=== PATIENT | female | born 1955 | race Caucasian/White ===

== ENCOUNTER 2019-10-16 12:46 | Outpatient (CLI) | payer OTHER, SELFPAY ==
--- NOTE | ~2019-10-16 | DEXA_ITS ---
Bone Density Report Name: Lisa Hernandez Age: 64 Sex: Female Ethnicity: White Date of : 1955 Indication: postmenopausal; inflammatory bowel disease; prior fracture; hysterectomy; Referring Provider: Vanessa, Justine Rivera Study: Bone densitometry was performed. Exam Date: October 16, 2019 Accession number: [id number] Bone Density: Region BMD T-score Z-score Classification AP Spine (L1-L4) 1.091 0.4 2.0 Normal Femoral Neck (Left) 0.691 -1.4 0.0 Osteopenia Total Hip (Left) 0.789 -1.3 -0.2 Osteopenia Total Hip Bilateral Avg 0.790 -1.3 -0.2 Osteopenia Femoral Neck (Right) 0.675 -1.6 -0.2 Osteopenia Total Hip (Right) 0.790 -1.2 -0.2 Osteopenia World Health Organization criteria for BMD impression classify patients as: Normal (T-score at or above -1.0), Osteopenia (T-score between -1.0 and -2.5), or Osteoporosis (T-score at or below -2.5). 10-year Fracture Risk(1): Major Osteoporotic Fracture 13% Hip Fracture 1.2% Reported Risk Factors: [place] (), Neck BMD=0.675, BMI=37.6, previous fracture (1) FRAX(R) Version 3.08. Fracture probability calculated for an untreated patient. Fracture probability may be lower if the patient has received treatment. Previous Exams: Region Exam Age BMD T-score BMD Change BMD Change Date g/cm2 vs Baseline vs Previous AP Spine(L1-L4) 10/16/2019 64 1.091 0.4 -0.151(-12.1%) -0.029(-2.6%)* 08/09/2014 58 1.121 0.7 -0.122(-9.8%)# -0.016(-1.4%)# 05/12/2011 55 1.136 0.8 -0.106(-8.6%)# -0.106(-8.6%)# 08/25/2008 53 1.242 1.8 Total Hip(Left) 10/16/2019 64 0.789 -1.3 -0.238(-23.2%) -0.049(-5.9%)* 08/09/2014 58 0.838 -0.9 -0.189(-18.4%) -0.039(-4.5%)# 05/12/2011 55 0.877 -0.5 -0.150(-14.6%) -0.150(-14.6%) 08/25/2008 53 1.028 0.7 Total Hip(Right) 10/16/2019 64 0.790 -1.2 -0.060(-7.0%)# -0.035(-4.3%)* 08/09/2014 58 0.826 -1.0 -0.024(-2.8%)# -0.004(-0.5%)# 05/12/2011 55 0.830 -0.9 -0.020(-2.3%)# -0.020(-2.3%)# 08/25/2008 53 0.850 -0.8 *Denotes significance at 95% confidence level, LSC for AP Spine = 0.022 g/cm2, LSC for Total Hip = 0.027 g/cm2 Clinical Information Provided by Patient: Has had a low trauma fracture Has used the following medications: Vitamin D, Calcium Has the following medical conditions: Inflammatory bowel diseases, Hysterectomy Patient maximum height was 69.7 Menopause Age: 47 Drinks caffeinated beverages Onset of menses at age 17 Number of children 1
== END 2019-10-16 12:47 | disposition home or self-care (01) ==
PROVIDERS: PCP Family Medicine; Visit Provider Nurse Practitioner Obstetrics & Gynecology
DX: Z78.0 Asymptomatic menopausal state (principal); M85.852 Other specified disorders of bone density and structure, left thigh; M85.851 Other specified disorders of bone density and structure, right thigh
CPT/HCPCS: 77080

== ENCOUNTER 2020-04-17 10:15 | Outpatient (CLI) | payer OTHER, SELFPAY ==
--- NOTE | ~2020-04-17 | MM_ITS ---
EXAMINATION: MM screening skye BI w samina HISTORY: Screening mammogram TECHNIQUE: Craniocaudal and mediolateral oblique 3-D tomosynthesis images were obtained and synthetic 2-D images were generated. CAD analysis was submitted and interpreted. COMPARISON: 02/23/2019, 01/22/2018, 12/24/2016 bilateral digital screening mammogram examinations BREAST PARENCHYMAL COMPOSITION: There are scattered areas of fibroglandular density. FINDINGS: There is a biopsy marker in the upper outer quadrant of the left breast; history of prior b enign biopsy. Bilateral breast masses are noted. Bilateral diagnostic mammography an ultrasound examination is johnnie mmended. IMPRESSION: 1. Bilateral breast masses 2. Bilateral diagnostic mammography and bilateral breast ultrasound examination are recommended. BI-RADS Category 0: Incomplete: Needs additional imaging evaluation. Reviewed, dictated and finalized at location A. TE HEALTH COACH
== END 2020-04-17 10:16 | disposition home or self-care (01) ==
LOC: ANHIMG 10:17
PROVIDERS: PCP Family Medicine; Visit Provider Family Medicine
DX: Z12.31 Encounter for screening mammogram for malignant neoplasm of breast (principal); R92.8 Other abnormal and inconclusive findings on diagnostic imaging of breast
CPT/HCPCS: 77063; 77067

== ENCOUNTER 2020-05-14 12:55 | Outpatient (CLI) | payer OTHER, SELFPAY ==
--- NOTE | ~2020-05-14 | MMUS_ITS ---
EXAMINATION: MM diagnostic mammo BI, US breast BI complete HISTORY: Follow-up bilateral breast masses. TECHNIQUE: Additional 3-D tomosynthesis images of the breasts were performed and synthetic 2-D images were generated. CAD analysis was submitted and interpreted. High resolution complete bilateral breas t ultrasound was performed. COMPARISON: Comparison to multiple prior studies sequentially, with oldest reviewed study dated 08/09. BREAST PARENCHYMAL COMPOSITION: Breast composed of scattered areas of fibroglandular density. FINDINGS: MAMMOGRAPHIC FINDINGS: There are small bilateral benign-appearing nodular densities in the periareolar location of both mattie sts. There are no suspicious calcifications or architectural distortion. ULTRASOUND: Bilateral breast Limited ultrasound: The right breast at 11:00, 3 cm from the nipple there is a 3 mm cyst. No suspicious masses are identi fied in the left breast to suggest malignancy. IMPRESSION: 1. Probable benign periareolar breast nodules. 2. Recommend 6 month follow-up diagnostic bilateral mammogram. BI-RADS category 3, probably benign findings. Reviewed, dictated and finalized at location A. RD SYSTEMS ANALYST IMPRESSION: 1. Probable benign periareolar breast nodules. 2. Recommend 6 month follow-up diagnostic bilateral mammogram. BI-RADS category 3, probably benign findings.
== END 2020-05-14 12:56 | disposition home or self-care (01) ==
PROVIDERS: PCP Family Medicine; Visit Provider Physician Assistant
DX: R92.8 Other abnormal and inconclusive findings on diagnostic imaging of breast (principal)
CPT/HCPCS: 76641; 77066

== ENCOUNTER 2020-12-03 12:14 | Outpatient (CLI) | payer OTHER, SELFPAY ==
--- NOTE | ~2020-12-03 | MMUS_ITS ---
EXAMINATION: MM diagnostic skye BI w samina, US breast BI complete HISTORY: Six-month follow-up of probable benign periareolar breast density TECHNIQUE: ML, MLO and craniocaudal 3-D tomosynthesis images of both breasts were performed and synth etic 2-D images were generated. CAD analysis was submitted and interpreted. High resolution bilateral complete breast ultrasound was performed. COMPARISON: 05/14/2020 bilateral diagnostic digital mammogram and bilateral complete breast ultrasound 04/17/2020, 02/23/2019, 01/22/2018 bilateral digital screening mammogram examinations BREAST PARENCHYMAL COMPOSITION: There are scattered areas of fibroglandular density. FINDINGS: MAMMOGRAPHIC FINDINGS: Stable mild fibroglandular asymmetry. No significant interval reproducible mass is noted since 01/22/2018. A biopsy marker is noted in the posterior upper outer left breast; history of prior benign left breast biopsy. No malignant calcification, skin thickening or retraction. ULTRASOUND: Right breast: 11:00 3 cm from nipple: 2.8 x 3.4 mm mildly irregular hypoechoic area, mildly increased in size since 05/14/2020; ultrasound-guided aspiration attempt is recommended; if this does not aspirate, then immed iate ultrasound-guided biopsy is recommended. 10:00 near nipple: 2.4 x 15.8 mm tubular sonolucency, without internal vascularity or posterior shado wing, not significantly changed since 05/14/2020. Left breast: No suspicious mass or shadowing is detected. IMPRESSION: 1. Mildly increased size of a hypoechoic irregular 3.4 mm right breast lesion at 11:00 3 cm from nipp le 2. Ultrasound-guided aspiration attempt of right breast 11:00 lesion is recommended; if this does not successfully completely aspirate, then immediate ultrasound-guided biopsy is recommended BI-RADS category 4, suspicious findings. Dr. Dolan telephoned the report on 12/03/[address] Merlos's Nurse's voicemail. Reviewed, dictated and finalized at location A. IMPRESSION: 1. Mildly increased size of a hypoechoic irregular 3.4 mm right breast lesion a t 11:00 3 cm from nipple 2. Ultrasound-guided aspiration attempt of right breast 11:00 lesion is recomme nded; if this does not successfully completely aspirate, then immediate ultraso und-guided biopsy is recommended BI-RADS category 4, suspicious findings. Dr. Dolan telephoned the report on 12/03/[address] at [address] Merlos's Nurse's voicemail.
== END 2020-12-03 12:15 | disposition home or self-care (01) ==
LOC: ANHIMG 12:16
PROVIDERS: PCP Family Medicine; Visit Provider Family Medicine
DX: R92.8 Other abnormal and inconclusive findings on diagnostic imaging of breast (principal)
CPT/HCPCS: 76641; 77062; 77066; G0279

== ENCOUNTER 2022-01-10 10:59 | Outpatient (CLI) | payer OTHER, SELFPAY ==
--- NOTE | ~2022-01-10 | MM_ITS ---
EXAMINATION: MM screening [facility] BI w samina HISTORY: Screening TECHNIQUE: Craniocaudal and mediolateral oblique 3-D tomosynthesis images were obtained and synthetic 2-D images were generated. CAD analysis was submitted and interpreted. COMPARISON: Comparison to multiple prior studies sequentially, with oldest reviewed study dated 12/11. BREAST PARENCHYMAL COMPOSITION: There are scattered areas of fibroglandular density. FINDINGS: There is no evidence of suspicious mass, calcification, or architectural distortion to sugg est malignancy in either breast. There has been no suspicious interval change. IMPRESSION: 1. No mammographic evidence of malignancy. 2. Recommend routine screening mammography in one year. BI-RADS Category 1: Negative Reviewed, dictated and finalized at location A.
== END 2022-01-10 11:00 | disposition home or self-care (01) ==
PROVIDERS: PCP Family Medicine; Visit Provider Family Medicine
DX: Z12.31 Encounter for screening mammogram for malignant neoplasm of breast (principal)
CPT/HCPCS: 77063; 77067

== ENCOUNTER 2022-03-12 10:39 | Emergency (ER) | payer OTHER, SELFPAY ==
[2022-03-12 11:31] VITALS: BP 134/80; PULSE 75; RESP 16; TEMP 36.8; O2SAT 100
--- NOTE | 2022-03-12 12:19 | ED.EAR ---
HPI - Ear Problem General Chief complaint: Ear Stated complaint: having trouble hearing on lt ear Time Seen by Provider: 03/12/22 12:19 Source: patient Mode of arrival: ambulatory Limitations: no limitations History of Present Illness HPI Narrative: 66-year-old female presented for complaint of decreased hearing from the left ear for about 2 days. She denies associated tinnitus, dizziness, sinus congestion, nausea, vomiting, fevers or chills. She endorses a history of excess cerumen. She has been using Debrox. MD Complaint: ear pain Related Data Home Medications Medication Instructions Recorded Confirmed calcium citrate 200 mg 1 tablet PO DAILY 12/23/19 03/12/22 calcium-vitamin D3 6.25 mcg (250 unit) tablet multivitamin 1 tablet PO DAILY 12/23/19 03/12/22 Allergies Allergy/AdvReac Type Severity Reaction Status Date / Time Inhaled Anesthetics (Halogen Allergy Mild Unknown Verified 03/12/22 12:22 Based) lidocaine [From Anastia] Allergy Mild Unknown Verified 03/12/22 12:22 adhesive Allergy Unknown unknown Verified 03/12/22 12:22 adhesive tape Allergy Unknown Rash Verified 03/12/22 12:22 latex Allergy Unknown unknown Verified 03/12/22 12:22 Review of Systems Review of Systems: CONSTITUTIONAL: Denies malaise, chills, or fever. EYES: Denies visual changes, redness, or discharge. ENT: Denies rhinorrhea, congestion, sinus pain, and sore throat. CARDIOVASCULAR: Denies chest pain, palpitations, or edema. RESPIRATORY: Denies cough or dyspnea. GASTROINTESTINAL: Denies abdominal pain, nausea, vomiting, diarrhea SKIN: Denies rash or itching. MUSCULOSKELETAL: Denies myalgia. NEUROLOGIC: Denies headache. All systems reviewed & are unremarkable except as noted in HPI and below PMFSH Past Medical History Medical History Allergic rhinitis Essential (primary) hypertension Other hyperlipidemia Surgical History Surgical History Carpal tunnel syndrome of right wrist H/O section H/O: hysterectomy History of appendectomy History of carpal tunnel surgery of left wrist Family History Family History Father Patient's father is Family history of emphysema Sibling Patient's brother is Mother Family history of arthritis Social History Social History Smoking status: Never smoker Second hand tobacco smoke exposure: No Alcohol intake: current Alcohol use details: rare Substance use: never Substance use type: does not use Lack of Transportation: No Lack of Food: Never True Current Housing: I Have Housing Concerned About Future Housing: No Difficulty Paying Gas/Electric Bills: No Difficulty Paying for Meds: No Currently Unemployed: No Education: High School Diploma/GED Gender identity (if verbalized by the patient): Female Sexual Orientation (if Verbalized by the Patient): Straight or Heterosexual Spiritual care concerns: No Agree to blood products: Yes Comments At time of signature, agree with nursing past medical, surgical, social and family history. There is no relevant family history pertinent to the presenting complaint Exam Narrative: GENERAL: Well-appearing, well-nourished, and in no acute distress. HEAD: Normocephalic EYES: PERRLA, conjunctivae clear ENT: Nares clear. Mucous membranes moist. TMs pearly taylor with dull light reflex bilaterally, mild clear effusion to left; no tragal tenderness. Oropharynx not erythematous without lesions. NECK: Supple. No lymphadenopathy CHEST: Clear to auscultation, breath sounds equal. No wheezing, rhonchi, rales, or stridor. No respiratory distress, speaks in full sentences. HEART: Regular rate and rhythm. No murmur heard. SKIN: Warm, dry, no rash. NEURO: Alert
== END 2022-03-12 12:32 | disposition home or self-care (01) ==
PROVIDERS: Emergency Provider Nurse Practitioner Family; PCP Family Medicine
DX: H65.02 Acute serous otitis media, left ear (principal); I10 Essential (primary) hypertension; E78.49 Other hyperlipidemia
CPT/HCPCS: 99213; G0463

== ENCOUNTER 2023-01-15 17:26 | Emergency (ER) | payer OTHER, SELFPAY ==
[2023-01-15 17:45] VITALS: BP 155/91; PULSE 76; RESP 16; TEMP 36.4; O2SAT 100
--- NOTE | 2023-01-15 18:18 | ED.EXTPRO ---
HPI - Extremity Problem General Chief complaint: Extremity Problem,Nontraumatic Stated complaint: L INDEX FINGER PAIN/BRUISING Source: patient and RN notes reviewed History of Present Illness HPI Narrative: 67 yo F presents to urgent care with complaints of purple discoloration to left index finger. Pt states she was doing yardwork and planting mums today and when she went inside to wash her hands, she noticed her finger was discolored. Pt is concerned she may have been bitten by a spider. Pt states she remembers feeling a slight pain in the area earlier in the day but nothing significant. Pt admits to wearing gardening gloves intermittently. Pt reports a slight tenderness in the area of the bruise. Denies any other symptoms. Related Data Home Medications Medication Instructions Recorded Confirmed calcium citrate 200 mg 1 tablet PO DAILY 12/23/19 01/15/23 calcium-vitamin D3 6.25 mcg (250 unit) tablet multivitamin 1 tablet PO DAILY 12/23/19 01/15/23 meloxicam 15 mg tablet 15 mg PO DAILY 01/15/23 01/15/23 Allergies Allergy/AdvReac Type Severity Reaction Status Date / Time Inhaled Anesthetics (Halogen Allergy Mild Unknown Verified 01/15/23 17:44 Based) lidocaine [From Anastia] Allergy Mild Unknown Verified 01/15/23 17:44 adhesive Allergy Unknown unknown Verified 01/15/23 17:44 adhesive tape Allergy Unknown Rash Verified 01/15/23 17:44 latex Allergy Unknown unknown Verified 01/15/23 17:44 Review of Systems Review of Systems: CONSTITUTIONAL: Denies fever, chills, or sweats. EYES: Denies visual changes, redness, or discharge. ENT: Denies otalgia and sore throat CARDIOVASCULAR: Denies chest pain, palpitations, or edema. RESPIRATORY: Denies cough or dyspnea. GASTROINTESTINAL: Denies abdominal pain, nausea, vomiting, or diarrhea. GENITOURINARY: Denies dysuria or hematuria. SKIN: dark purple to left index finger MUSCULOSKELETAL: Denies back pain, joint pain, or myalgia. NEUROLOGIC: Denies headache, numbness, or weakness. Pertinent positives per HPI. [facility] Past Medical History Medical History Allergic rhinitis Essential (primary) hypertension Other hyperlipidemia Surgical History Surgical History Carpal tunnel syndrome of right wrist H/O section H/O: hysterectomy History of appendectomy History of carpal tunnel surgery of left wrist Family History Family History Father Patient's father is Family history of emphysema Sibling Patient's brother is Mother Family history of arthritis Social History Social History Smoking status: Never smoker Second hand tobacco smoke exposure: No Alcohol intake: current Alcohol use details: rare Substance use: never Substance use type: does not use Lack of Transportation: No Lack of Food: Never True Current Housing: I Have Housing Concerned About Future Housing: No Difficulty Paying Gas/Electric Bills: No Difficulty Paying for Meds: No Currently Unemployed: No Education: High School Diploma/GED Living arrangements: with family Occupation/Education: retired Gender identity (if verbalized by the patient): Female Sexual Orientation (if Verbalized by the Patient): Straight or Heterosexual Spiritual care concerns: No Agree to blood products: Yes Comments At the time of my signature, I reviewed and agree with the nursing past medical, surgical, social, and family history. There is no relevant family history pertinent to the patient complaint. Exam Narrative: GENERAL: This is a well-nourished, well-developed patient, in no apparent distress. HEAD: normocephalic, atraumatic. EYES: Sclera clear/white. Vision is grossly intact. EARS: External ears n
== END 2023-01-15 18:22 | disposition home or self-care (01) ==
PROVIDERS: Emergency Provider Nurse Practitioner Family; PCP Family Medicine
DX: R58 Hemorrhage, not elsewhere classified (principal); I10 Essential (primary) hypertension; E78.49 Other hyperlipidemia
CPT/HCPCS: 99211; G0463

== ENCOUNTER 2023-05-24 14:44 | Outpatient (CLI) | payer OTHER, SELFPAY ==
--- NOTE | ~2023-05-24 | MM_ITS ---
EXAMINATION: MM screening skye BI w samina HISTORY: Screening mammogram TECHNIQUE: Craniocaudal and mediolateral oblique 3-D tomosynthesis images were obtained and synthetic 2-D images were generated. CAD analysis was submitted and interpreted. COMPARISON: 01/10/2022 bilateral screening mammogram 12/03/2020 bilateral diagnostic mammography and bilateral complete breast ultrasound examination 3. bilateral diagnostic mammography and bilateral complete breast ultrasound examination bilateral screening mammogram BREAST PARENCHYMAL COMPOSITION: There are scattered areas of fibroglandular density. FINDINGS: Biopsy marker is present in the upper outer quadrant of the left breast. History of prior l eft benign left biopsy in 2007 and benign aspiration of right breast in 2020. There is no evidence of suspicious mass, calcification, or architectural distortion to suggest malignancy in either breast. There has been no suspicious interval change. IMPRESSION: 1. No mammographic evidence of malignancy. 2. Recommend routine screening mammography in one year. BI-RADS Category 1: Negative Reviewed, dictated and finalized at location A.
--- NOTE | ~2023-05-24 | DEXA_ITS ---
Bone Density Report Name: JOVANNA VYAS Age: 67 Sex: Female Ethnicity: White Date of : 1955 Indication: postmenopausal; screening for osteoporosis; hysterectomy; Referring Provider: ERMA LOPEZ Study: Bone densitometry was performed. Exam Date: May 24, 2023 Accession number: [id number] Bone Density: Region BMD T-score Z-score Classification AP Spine(L1-L4) 1.072 0.2 2.0 Normal Femoral Neck (Left) 0.673 -1.6 0.0 Osteopenia Total Hip (Left) 0.835 -0.9 0.4 Normal Femoral Neck (Right) 0.681 -1.5 0.0 Osteopenia Total Hip (Right) 0.788 -1.3 0.0 Osteopenia Total Hip Mean 0.812 -1.1 0.2 Osteopenia World Health Organization criteria for BMD impression classify patients as: Normal (T-score at or above -1.0), Osteopenia (T-score between -1.0 and -2.5), or Osteoporosis (T-score at or below -2.5). 10-year Fracture Risk(1): Major Osteoporotic Fracture 8.2% Hip Fracture 0.8% Reported Risk Factors: [place] (), Neck BMD=0.673, BMI=38.1 (1) FRAX(R) Version 3.08. Fracture probability calculated for an untreated patient. Fracture probability may be lower if the patient has received treatment. Clinical Information Provided by Patient: Has used the following medications: Vitamin D, Calcium Has the following medical conditions: Hysterectomy Patient maximum height was 69.7 Menopause Age: 47 No regular weight bearing exercise Drinks caffeinated beverages Onset of menses at age 17 Number of children 1 Impression: The patient has low bone mass, based on the Left Femoral Neck T-score. The patient has an estimated ten-year risk of hip fracture of 0.8% and an estimated ten-year risk of major fracture of 8.2%, based on the WHO FRAX algorithm. Discussion: BONE DENSITY IS LOW AT ONE OR MORE SKELETAL SITES. This patient's lowest T-score is low at one or more skeletal sites. It meets the World Health Organization's (WHO) criteria for ?low bone mass? (T-score between -1.0 and -2.5). The patient's 10-year risk of fracture as calculated by FRAX is less than the threshold where pharmacological therapy is recommended by the National Osteoporosis Foundation (NOF). However, all treatment decisions require clinical judgment and consideration of individual patient factors, including patient preferences, comorbidities, previous drug use, risk factors not captured in the FRAX model (e.g., frailty, falls, vitamin D deficiency, increased bone turnover, interval significant decline in bone density) and possible under or overestimation of fracture risk by FRAX. The patient should follow a healthful lifestyle (good nutrition with adequate calcium and vitamin D, and appropriate weight-bearing exercise). Follow-Up: Consider repeating this study in 2 to 3 years to reassess this patient's status, or soone
== END 2023-05-24 14:45 | disposition home or self-care (01) ==
LOC: ANHIMG 14:45
PROVIDERS: PCP Family Medicine; Visit Provider Family Medicine
DX: Z12.31 Encounter for screening mammogram for malignant neoplasm of breast (principal); Z78.0 Asymptomatic menopausal state; M85.852 Other specified disorders of bone density and structure, left thigh; M85.851 Other specified disorders of bone density and structure, right thigh
CPT/HCPCS: 77063; 77067; 77080

== ENCOUNTER 2023-06-29 12:24 | Emergency (ER) | payer OTHER, SELFPAY ==
--- NOTE | 2023-06-29 12:33 | ED.EAR ---
HPI - Ear Problem General Chief complaint: Ear Stated complaint: Ear Pain Source: patient, RN notes reviewed and old records reviewed Mode of arrival: ambulatory Limitations: no limitations History of Present Illness HPI Narrative: 8-year-old female presents to [facility] with complaints pain and decreased hearing in right ear that started for 5 days ago. Patient tried the Debrox and [id number] swimmers ear medication with no relief. Related Data Home Medications Medication Instructions Recorded Confirmed calcium citrate 200 mg 1 tablet PO DAILY 12/23/19 06/29/23 calcium-vitamin D3 6.25 mcg (250 unit) tablet multivitamin 1 tablet PO DAILY 12/23/19 06/29/23 diclofenac sodium 75 mg 75 mg PO BID PRN knee pain 06/29/23 06/29/23 tablet,delayed release Allergies Allergy/AdvReac Type Severity Reaction Status Date / Time Inhaled Anesthetics (Halogen Allergy Mild Unknown Verified 06/29/23 12:33 Based) lidocaine [From Anastia] Allergy Mild Unknown Verified 06/29/23 12:33 adhesive Allergy Unknown unknown Verified 06/29/23 12:33 adhesive tape Allergy Unknown Rash Verified 06/29/23 12:33 latex Allergy Unknown unknown Verified 06/29/23 12:33 Review of Systems Constitutional: Constitutional: Reports no additional constitutional complaints, Denies body ache(s), Denies chills, Denies fatigue, Denies fever(s) and Denies headache(s) Eyes: Eyes: Reports no additional eye complaints and Denies blurry vision ENT: Reports system reviewed and no additional complaints, except as documented, Denies vertigo, Denies dizziness, Denies ear discharge, Reports otalgia, Denies facial pain, Denies headache(s), Denies nasal congestion, Denies nasal discharge, Denies sinus pain, Denies sinus pressure and Denies sore throat Cardiovascular: Cardiovascular: Reports no additional cardiovascular complaints, Denies chest pain, Denies chest pain at rest, Denies rapid heart rate and Denies dyspnea Respiratory: Respiratory: Reports no additional respiratory complaints, Denies chest congestion, Denies cough, Denies pain on inspiration, Denies pain with cough and Denies dyspnea Gastrointestinal: Gastrointestinal: Denies abdominal pain, Denies diarrhea, Denies nausea and Denies vomiting Integumentary/Breasts: Skin/Breast: Denies rash Neurologic: Reports system reviewed and no additional complaints, except as documented, Denies vertigo, Denies dizziness and Denies headache(s) Endocrine: Endocrine: Denies fatigue PMFSH Past Medical History Medical History Allergic rhinitis Essential (primary) hypertension Other hyperlipidemia Surgical History Surgical History Carpal tunnel syndrome of right wrist H/O section H/O: hysterectomy History of appendectomy History of carpal tunnel surgery of left wrist Family History Family History Father Patient's father is Family history of emphysema Sibling Patient's brother is Mother Family history of arthritis Social History Social History Smoking status: Never smoker Second hand tobacco smoke exposure: No Alcohol intake: current Alcohol use details: rare Substance use: never Substance use type: does not use Lack of Transportation: No Lack of Food: Never True Current Housing: I Have Housing Concerned About Future Housing: No Difficulty Paying Gas/Electric Bills: No Difficulty Paying for Meds: No Currently Unemployed: No Education: High School Diploma/GED Living arrangements: with family Occupation/Education: retired Gender identity (if verbalized by the patient): Female Sexual Orientation (if Verbalized by the Patient): Straight or Heterosexual Spiritual care concerns: No Agree to blood pr
[2023-06-29 12:37] VITALS: BP 134/77; PULSE 86; RESP 16; TEMP 36.8; O2SAT 99
[2023-06-29 12:38] VITALS: BP 134/77; PULSE 86; RESP 16; TEMP 36.8; O2SAT 99
== END 2023-06-29 12:52 | disposition home or self-care (01) ==
PROVIDERS: Emergency Provider Registered Nurse; PCP Family Medicine
DX: H66.001 Acute suppurative otitis media without spontaneous rupture of ear drum, right ear (principal); H61.21 Impacted cerumen, right ear; I10 Essential (primary) hypertension; E78.49 Other hyperlipidemia
CPT/HCPCS: 69210; 99213; G0463

== ENCOUNTER 2023-08-11 13:26 | Outpatient (CLI) | payer OTHER, SELFPAY ==
--- NOTE | ~2023-08-11 | CT_ITS ---
EXAMINATION: CT sinus wo con DATE: 08/11/2023 13:43 INDICATION: Acute recurrent medullary sinusitis TECHNIQUE: Computed tomography (CT) of the paranasal sinuses was performed without intravenous contra st. The dose-length product (DLP) was 298.61 mGy-cm. Iterative reconstruction was used. COMPARISON: None FINDINGS: Poor pneumatization of the frontal sinuses. Retention cyst/polyps in the bilateral maxillar y sinuses, with mucosal thickening. Mild mucosal thickening in the ethmoid sinuses. The frontal and s phenoid sinuses are clear The bilateral ostiomeatal complexes are patent. Right lens replacement. IMPRESSION: Bilateral inferior maxillary sinus retention cyst/polyps. Mild mucoperiosteal disease in the maxillar y and ethmoid sinuses. Reviewed, dictated and finalized at location K. IMPRESSION: Bilateral inferior maxillary sinus retention cyst/polyps. Mild mucoperiosteal d isease in the maxillary and ethmoid sinuses.
== END 2023-08-11 13:27 | disposition home or self-care (01) ==
PROVIDERS: PCP Family Medicine; Visit Provider Otolaryngology
DX: H69.90 Unspecified Eustachian tube disorder, unspecified ear (principal); H90.6 Mixed conductive and sensorineural hearing loss, bilateral; J01.01 Acute recurrent maxillary sinusitis; J34.1 Cyst and mucocele of nose and nasal sinus
CPT/HCPCS: 70486

== ENCOUNTER 2023-10-27 10:52 | Outpatient (CLI) | payer OTHER, SELFPAY | END 2023-10-27 10:53 | disposition home or self-care (01) | PROVIDERS: PCP Family Medicine; Visit Provider Otolaryngology | DX: H69.90 Unspecified Eustachian tube disorder, unspecified ear (principal); J01.01 Acute recurrent maxillary sinusitis; H90.3 Sensorineural hearing loss, bilateral | CPT/HCPCS: 92557; 92567 ==

== ENCOUNTER 2023-12-02 10:36 | Emergency (ER) | payer OTHER, SELFPAY ==
--- NOTE | 2023-12-02 10:43 | ED.SKABFB ---
HPI - Skin/Abscess/Foreign Bdy General Chief complaint: Skin/Abscess/Foreign Body Stated complaint: poison chika, rash on thighs,stomach,back Time Seen by Provider: 12/02/23 10:59 Source: patient and RN notes reviewed Mode of arrival: ambulatory Limitations: no limitations History of Present Illness HPI narrative: 68-year-old female presents with concern for itchy rash on her legs. Reports the rash started off on the back for legs after she did yd work on Monday. Reports it is very itchy. Reports she has tried topical ointment without relief. MD complaint: rash Related Data Home Medications Medication Instructions Recorded Confirmed calcium citrate 200 mg 1 tablet PO DAILY 12/23/19 12/02/23 calcium-vitamin D3 6.25 mcg (250 unit) tablet multivitamin 1 tablet PO DAILY 12/23/19 12/02/23 meloxicam 15 mg tablet 15 mg PO DAILY 09/19/23 12/02/23 Allergies Allergy/AdvReac Type Severity Reaction Status Date / Time Inhaled Anesthetics (Halogen Allergy Mild Unknown Verified 12/02/23 11:03 Based) lidocaine [From Anastia] Allergy Mild Unknown Verified 12/02/23 11:03 adhesive Allergy Unknown unknown Verified 12/02/23 11:03 adhesive tape Allergy Unknown Rash Verified 12/02/23 11:03 latex Allergy Unknown unknown Verified 12/02/23 11:03 Review of Systems Review of Systems: CONSTITUTIONAL: Denies malaise, chills, sweats, or fever. EYES: Denies redness, or discharge. ENT: Denies rhinorrhea, congestion, swollen lips, swollen tongue CARDIOVASCULAR: Denies chest pain, palpitations, or edema. RESPIRATORY: Denies cough or dyspnea. GASTROINTESTINAL: Denies abdominal pain, nausea, vomiting SKIN: Reports itchy rash on bilateral legs MUSCULOSKELETAL: Denies joint pain or myalgia. NEUROLOGIC: Denies headache. All systems reviewed & are unremarkable except as noted in HPI and below PMFSH Past Medical History Medical History Allergic rhinitis Essential (primary) hypertension Other hyperlipidemia Surgical History Surgical History Carpal tunnel syndrome of right wrist H/O section H/O: hysterectomy History of appendectomy History of carpal tunnel surgery of left wrist Family History Family History Father Patient's father is Family history of emphysema Sibling Patient's brother is Mother Family history of arthritis Social History Social History (Reviewed 09/19/23 @ 13:56 by Rhiannon De La Torre [facility]) Smoking status: Never smoker Second hand tobacco smoke exposure: No Alcohol intake: current Alcohol use details: rare Substance use: never Substance use type: does not use Lack of Transportation: No Lack of Food: Never True Current Housing: I Have Housing Concerned About Future Housing: No Difficulty Paying Gas/Electric Bills: No Difficulty Paying for Meds: No Currently Unemployed: No Education: High School Diploma/GED Living arrangements: with family Occupation/Education: retired Gender identity (if verbalized by the patient): Female Sexual Orientation (if Verbalized by the Patient): Straight or Heterosexual Spiritual care concerns: No Agree to blood products: Yes Comments At time of signature, agree with nursing past medical, surgical, social and family history. There is no relevant family history pertinent to the presenting complaint Exam Narrative: GENERAL: Well-appearing, well-nourished, and in no acute distress. HEAD: Normocephalic, atraumatic. EYES: PERRLA, conjunctivae clear, and EOMI. ENT: Mucous membranes moist. Oropharynx without edema, erythema or lesions. NECK: Supple. No lymphadenopathy CHEST: Clear to auscultation. No respiratory distress. HEART: Regular rate and rhythm. SKIN: Warm, dry. Erythematous papular rash noted on bilateral posterior and anterior
[2023-12-02 11:02] VITALS: BP 128/87; PULSE 76; RESP 16; TEMP 36.4; O2SAT 98
== END 2023-12-02 11:13 | disposition home or self-care (01) ==
PROVIDERS: Emergency Provider Nurse Practitioner; PCP Family Medicine
DX: L25.9 Unspecified contact dermatitis, unspecified cause (principal); I10 Essential (primary) hypertension; E78.49 Other hyperlipidemia
CPT/HCPCS: 99213; G0463

== ENCOUNTER 2024-04-19 14:51 | Outpatient (CLI) | payer OTHER, SELFPAY ==
--- NOTE | ~2024-04-19 | US_ITS ---
EXAM: Focused ultrasound examination of the soft tissues of the right flank HISTORY: R22.2 - Localized swelling, mass and lump, trunk TECHNIQUE: Sonographic evaluation of the soft tissues of the right flank were performed assessing gra yscale appearance and color Doppler flow. COMPARISON: None. FINDINGS: Sonographic evaluation of the soft tissues of the right flank demonstrate a subtle area of increased echogenicity measuring 18 x 12 x 5 mm, consistent with a lipoma. Sonographic evaluation of the remainder of the soft tissues of the right flank demonstrate benign fib rofatty and fibromuscular elements without a cystic or solid lesion of concern. IMPRESSION: 18 mm lipoma within the region of clinical concern, as detailed above. Reviewed, dictated and finalized at location A. IGERATING ENGINEER
--- OUTSIDE RECORDS SUMMARY | 2024-04-19 15:00 | XMS_ITS | Clinical Summary ---
Author Organization [facility] [place] Address [address] [place] [address] Phone Care Team Providers Care Seals Engraver Name Role Phone Rosita Merlos MD Primary Care Provider [phone] Medications hydroCHLOROthiaz kelsie 25 mg tablet Take 25 mg by mouth daily. Active multivit with minerals/lutein (MULTIVITAMIN 50 PLUS ORAL) Take by mouth. Active POTASSIUM-99 ORAL Take by mouth. Active calcium carbonate/vitami n D3 (CALCIUM 500 + D ORAL) Take by mouth. Active DICLOFENAC SODIUM ORAL Take by mouth. Active miSOPROStoL (CYTOTEC) 200 mcg tablet Take 200 mcg by mouth 4 times daily. Active Active Problems Problem Noted Date Diagnosed Date Mass of upper outer quadrant of right breast Abnormality of right breast on screening mammogr am 01/07/2021 Social History Tobacco Use Types Packs/Day Years Used Date Smoking Tobacco: Never Assessed Comments No Sex and Gender Information Value Date Recorded Sex Assigned at Not on file Legal Sex Female 8:39 AM CDT Gender Identity Not on file Sexual Orientation Not on file Last Filed Vital Signs Vital Sign Reading Time Taken Comments Blood Pressure 142/91 01/07/2021 11:37 AM CDT Pulse - - Temperature - - Respiratory Rate - - Oxygen Saturation - - Inhaled Oxygen Concentration - - Weight 115.7 kg (255 lb) 01/07/2021 11:37 AM CDT Height 177.2 cm (5' 9.75 ) 01/07/2021 11:37 AM C DT Body Mass Index 36.85 01/07/2021 11:37 AM CDT Plan of Treatment Health Maintenance Due Date Last Done Comments DTAP/TDAP/TD VACCINES (1 - Tdap) 1976 COLORECTAL SCREENING 2002 Colorectal Cancer Screening 2002 FIT-DNA Q 3 years 2002 FIT/FOBT Q 1 year 2002 Flex Sig/CT Colonography Q 5 years 2002 PNEUMOCOCCAL VACCINE 65+ YEA RS (1 of 1 - PCV) 08/20/2007 ZOSTER VACCINE (1 of 2) 08/20/2007 BREAST CANCER SCREENING 12/03/2021 12/04/19 21, 05/14/2020, 04/17/2020 OSTEOPOROSIS SCREENING 2022 INFLUENZA VACCINE (#1) 2023 RSV VACCINE (60+ or ) (1 - 1-dose 75+ series) 2032 Procedures Procedure Name Priority Date/Time Associated Diagnosis Comments MAMMO 3D MARTIN DIAGNOSTIC GINA AT W OR WO CAD Routine 12/03/2020 from Last 3 Months or Most Recently Relevant to Health Maintenance Results * (ABNORMAL) MAMMO DIAG BILAT 3D MARTIN W OR WO CAD (12/03/2020) Anatomical Region Laterality Modality Breast Bilateral Other us Rosita Merlos MD MAMMO ORDERABLES Edited Result - Final from Last 3 Months or Most Recently Relevant to Health Maintenance Insurance [employer] Care Teams Seals Engraver Relationship Specialty Start Date End Date Rosita Merlos MD [address] [place] [address] PCP - General Family Practice 01/06/21
--- OUTSIDE RECORDS SUMMARY | 2024-04-19 15:00 | XMS_ITS | Data Portability ---
Author Organization [facility] Address [address] [place] [address] Care Team Providers Care Buffing Turner And Counter Name Role Phone ERMA LOPEZ Primary Care Provider Assessment No assessment recorded. Plan of Treatment Reminders Order Date Submit Date Provider Last Modified By Organization Details Last Modified Time Details Appointments None record ed. Lab None record ed. Referral None record ed. Procedures None record ed. Surgeries None record ed. Imaging None record ed. Medication Orders None record ed. Patient TargetsNo targets recorded. Patient InstructionsNo instructions recorded. Reason for Referral None Reported. Procedures Surgical History Date Name Laterality Status Provider Name and Address Organization Details Recorded Time 01/08/20 21 aspiration of breast completed [facility] 07/24/2021 15:26:58 03/19/19 21 Carpal tunnel surgery completed [facility] 07/24/2021 15:26:03 09/29/19 18 Carpal tunnel surgery completed [facility] 07/24/2021 15:25:54 09/30/19 17 operation on mouth completed [facility] 07/24/2021 11:09:51 07/24/19 17 operation on mouth completed [facility] 07/24/2021 11:09:33 09/05/19 15 cataract surgery completed [facility] 07/24/2021 11:10:11 03/13/19 08 Breast Biopsy completed [facility] 07/24/2021 15:26:29 03/13/19 02 Appendectomy completed [facility] 07/24/2021 15:26:38 10/25/19 01 hysterectomy completed [facility] 07/24/2021 11:12:52 06/18/18 96 procedure on foot completed [facility] 07/24/2021 11:14:08 09/14/18 95 section completed [facility] 07/24/2021 11:08:24 10/30/18 92 excision of neuroma of cutaneous nerve completed [facility] 07/24/2021 11:11:09 08/07/18 91 cryosurgery completed [facility] 07/24/2021 15:24:58 09/15/18 90 Hysteroscopy completed [facility] 07/24/2021 11:12:21 03/13/18 90 cone biopsy of cervix completed [facility] 07/24/2021 15:25:28 Imaging Results None recorded. Procedure Notes None recorded. Medical Equipment None Reported. Allergies Allergen ID Allergen Name Allergen Category Reaction Reaction Severity Criticality Documentation Date Start Date Code Code System Note Provider Name and Address Organization Details Recorded Time 48923 latex environme nt,medica tion Not available Not available Not available 02/28/2020 40645 91 RxNorm Comme nt: [facility]at [facility]; Not Available [facility] 0 14:20:50 Medications Name Sig Start Date Stop Date Status Note LastModified by Organization Details LastModified Time azithromy sean 250 mg tablet TAKE 2 TABLETS BY MOUTH FOR 1 DAY THEN TAKE 1 TABLET BY MOUTH DAILY FOR 4 DAYS 07/24 completed Not Available Not Available Not Available triamcino lone acetonide 0.1 % topical cream APPLY ON LEGS TWICE DAILY NEEDED FOR RASH 07/24 completed Not Available Not Available Not Available misoprost ol 200 mcg tablet TAKE 1 TABLET BY MOUTH TWICE DAILY WITH DICLOFEN AC active Not Available Not Available No t Available hydrochlo rothiazid e 12.5 mg capsule take 2 capsule by oral route every day 07/24 completed Prescrib ed Elsewher e: Yes Loca tion: [facility] By: margoth rollins DateTime : 04/20/19 11:45:00 AM Not Available Not Available Not Available hydrochlo rothiazid e 25 mg tablet TAKE 1 TABLET BY MOUTH DAILY active Not Available Not Available No t Available fluticaso ne propionat e 50 mcg/actua tion nasal spray,pepe pension ADMINIST ER 1 SPRAY IN EACH NOSTRIL EVERY 12 HOURS active Not Available Not Available No t Available meloxicam 7.5 mg/5 mL oral suspensio n take 5 millilit er by oral route every day 05/23 completed Prescrib ed Elsewher e: Yes Loca tion: [facility] By: margoth rollins DateTime : 04/20/19 11:45:00 AM Not Available Not Available Not Available mometason e furoate (bulk) 100 % powder 07/24 completed Prescrib ed Elsewher e: Yes Loca tion: [facility] By: margoth rollins DateTime : 05/24/19 02:30:00 PM Not Available Not Available Not Available Vitals Date Recorded Body height Body mass index (BMI) Body weight Provider Name and Address Organization Details Last Updated DateTime 07/24/2021 176.56 cm 37.8 kg/m2 397797.02 g Lois Gamboa [facility] 07/24/2021 10:51:42 Date Recorded Systolic blood pressure Diastolic blood pressure Provider Name and Address Organization Details Last Updated DateTime 07/24/2021 130 mm[Hg] 79 mm[Hg] Justine Mendez, [facility]- [address], [place], [address], [facility] 07/24/2021 11:18:03 Social History Question Answer Notes LastModified by Organizat ion Details LastModified Time Tobacco Smoking Status Never Smoker Lois Gamboa [facility], [facility] 07/24/2021 11:07:55 What Is Your Level Of Alcohol Consumption? Occasional [email or web address] Information not available 07/24/2021 Are You Blind Or Do You Have Difficulty Seeing? No [email or web address] Information n ot available 07/24/2021 What Is Your Level Of Caffeine Consumption? Occasional [email or web address] Information not available 07/24/2021 In The 14 Days Before Symptom Onset, Have You Had Close Contact With A Laboratory-confirm ed COVID-19 While That Case Was Ill? No Information n ot available 07/24/2021 In The 14 Days Before Symptom Onset, Have You Had Close Contact With A Person Who Is Under Investigation For COVID-19 While That Person Was Ill? No [email or web address] Information not available 07/24/2021 Have You Been To An Area Known To Be High Risk For COVID-19? No Information not available 07/24/2021 Are You Deaf Or Do You Have Serious Difficulty Hearing? No [email or web address] Information not available 07/24/2021 What Type Of Diet Are You Following? REGULAR [email or web address] Information n ot available 07/24/2021 Have You Ever Been Counseled For Unhealthy Alcohol Use? No [email or web address] Information not available 07/24/2021 Do You Use Your Seat Belt Or Car Seat Routinely? Yes Information not available 07/24/2021 Do You Have Smoke And Carbon Monoxide Detectors In Your Home? Yes [email or web address] Information not available 07/24/2021 Do You Feel Stressed (tense, Restless, Nervous, Or Anxious, Or Unable To Sleep At Night)? [id number] Information not available 07/24/2021 Do You Use Any Illicit Or Recreational Drugs? No [email or web address] Information not available 07/24/2021 Do You Use Sunscreen Routinely? Yes [email or web address] Information not available 07/24/2021 Has Tobacco Cessation Counseling Been Provided? No [email or web address] Information not available 07/24/2021 Do You Or Have You Ever Used Any Other Forms Of Tobacco Or Nicotine? No [email or web address] Information not available 07/24/2021 Sex: Unknown Functional Status Question Answer Note LastModified by Organizat ion Details LastModified Time Do you have difficulty walking or climbing stairs? No [email or web address] Information not available 07/24/2021 Are you able to walk? YESWOREST [email or web address] Information not available 07/24/2021 Are you able to care for yourself? Yes [email or web address] Information not available 07/24/2021 Do you have difficulty dressing or bathing? No [email or web address] Information not available 07/24/2021 What is your exercise level? Occasional [email or web address] Information not available 07/24/2021 Mental Status None recorded. Family History Relationship Description Onset Age of this Age Resolved Age Notes LastModified by Organization Details LastModified Time Brother Myocardial infarction Not available 07/11 11:06:59 Brother Heart disease [email or web address] Not available 07/24 11:07:06 Paternal Aunt Malignant tumor of breast [email or web address] Not available 07/24 11:07:14 Notes:Brother: Congenital he art disease Paternal aunt: Cancer, breast Medical History Condition Response Allergies (Food, seasonal, environmental ) N Other N Drug/Latex Allergies/Reactions N Breast Cancer N Blood Transfusion N Lung Disease N Dermatologic Disorders N Defects or Inherited Disease N Breast Problem Y Gestational Diabetes N Hematologic disorders N Anesthesia Complications N History of STI N Deep Vein Thrombosis N Polycystic ovary syndrome N Anxiety Disorder N Autoimmune disease N Arthritis N Polyps N Infertility N History of abnormal pap N Acid Reflux (GERD) N Cancer N Varicosities N Stroke N Neurologic/Epilepsy Y Endometriosis N High Cholesterol N Headaches N Fibromyalgia N Kidney Disease N Heart Problems N Thyroid Problems N Kidney or Bladder Problems N GI Problems N Eating Disorder N Anemia N Art (IVF or FET) N Psychiatric Illness N Ovarian Cancer N Diabetes N Pulmonary (TB, Asthma) N Hepatitis/Liver Disease N No Past Medical History N Eczema N Urinary Tract Infection N Abuse/Domestic Violence N Asthma N Trauma/Violence N Depression/ depression N Heart Disease N Pre-Eclampsia N Hypertension Y Osteoporosis N Thrombophilias N Gynecological History Statement/Question Response Date of Last Mammogram Date of LMP 03/13/2000 Date of DEXA bone scan Date of Last Pap Smear Current Control Method Menopause Desired Control Method Hysterectom y LMP Approximate Obstetrics History GPAL:G 1 P 1 0 0 1 Type Value Full Term 1 Living 1 Total 1 Past Encounters Encounter ID Performer Location Encounter Start Date Encounter Closed Date Diagnosis/Indication Diagnosis SNOMED-CT Code Diagnosis ICD10 Code Diagnosis Note [id number] Justine Mendez [facility] [address] [address] 07/24/2021 10:29:45 07/27/2021 16:11:27 Labial cyst [id number] N90.7 Area of concern was examined & it is wnl.Area is scarring from a previous infected follicle that is also near a blood vessel which is what gave it a purple sheen that patient saw when looking in mirror at home.Will monitor & let us know if any changes occur.Unde rstanding verbalized & agreeable to plan of care. Time spent in visit is a total of 15 mins with at least 50% of visit consisting of counseling and review of plan of care. Health Concerns Section Related Observation LastModified by Organization Detai ls LastModified Time None Recorded Concern Status LastModified by Organization Details LastModified Time None Recorded Advance Directives Directive None Recorded Payers Encounter Date Sequence Insurance Name Policy Number Policy Dolan Covered Member ID Dolan Member ID Guarantor Name 07/24/2021 1 [employer] - [employer] [facility] HEALTH PLAN - DOS PRIOR TO 03.13.2023 Lisa Hernandez [id number] Notes Date Note Type Note Provider Name and Address Organization Details Recorded Time 07/24/2021 text/html Here today for concerns of a vaginal bump noted about a week ago.Not causing any issues.Was washing this area and felt something. Neg painNeg drainageNeg shaving/waxingNeg vag d/c, itching, odorNeg SA-declined need std screenNeg Hx of Vag HSV Justine Mendez, [facility] [address], [place], [address], [facility] 07/27/2021 07:58:11 OBGyn Episode Ob Episode Information Episode Created Date Number of Fetuses Patient Bloodtype Patient rh Status Prepregnancy Weight lbs Domestic Partner Domestic Partner Phone Father Name Telegraph Office Telephone Clerk Status 07/25/19 22 1 CLOSED Fetus Data First Name Last Name Admitted to NICU Weight (g) Sex Living Outcome Pediatric Complications Fetus ID Race Codes Race Delivery Type 3968.93 F Full Term [id number] Primary Andrzej Calculation Initial Andrzej Date Initial Exam Date Initial Exam Provider Initial Ultrasound Date Last Menstrual Period Date Ultra Sound Weeks Gestation 0 Eighteen To Twenty Week Andrzej Update Ultra Sound Date Fundal Height At Umbil Quickening Date Ultra Sound Latest Weeks Gestation Final Andrzej Confirmed By Final Andrzej Confirmed Date Final Andrzej Date Ultra Sound Latest Days Gestation 0 0 Menstrual History Last Menstrual Date Menses Monthly On Bcp Conception Prior Menses Frequency Hcg Plus Date Menarche Onset Age Delivery Information Delivery Date Delivery Type Labor Anesthesia Weeks Gestation Incision Type Labor Labor Length Hrs Delivered By Post Complications Tubal Sterilization Discharge Date Comments 5 41 Discharge Information Feeding Method Contraceptive Method Maternal HG B and HCT Levels
--- OUTSIDE RECORDS SUMMARY | 2024-04-19 15:00 | XMS_ITS | Referral Summary ---
Author Organization [facility] Address [address] [place] [address] Care Team Providers Care Wide Area Network Administrator Name Role Phone Rosita Merlos MD Primary Care Provider [phone] Source Comments [facility],non-Formerly [facility], later [facility] and Associated Physician Practices is amultiple site organization consisting of ambulatory clinics and hospital sitesin [place], [place], [place] and [place]. This disclosure is being madepursuant to the Care Everywhere program and may not contain all information available regarding this patient. Last updated 17.[facility] Encounters Date Type Department Care Team Description 04/16/2024 2:20 PM TEACHER SPECIALIST Office Visit [address] [address] Esa Sullivan MD Primary osteoarthritis of right knee (Primary Dx) 03/13/[address] [address] Matty Walter PA-C Refill Request 01/23/2024 2:30 PM TEACHER SPECIALIST Office Visit [address] [address] Esa Sullivan MD Primary osteoarthritis of right knee (Primary Dx) from Last 3 Months Allergies Active Allergy Reactions Criticality Noted Date Comments Latex Other 10/18/2022 Medications * Be aware that medications may not be up to date on this document. Alwaysverify current medications with the patient. Medication Sig Dispensed Refills Start Date End Date Status miSOPROStol (Cytotec) 200 MCG tablet TAKE 1 TABLET BY MOUTH TWICE DAILY WITH DICLOFENAC Active hydroCHLOROthiazide (Hydrodiuril) 25 MG tablet Take 1 (one) tablet by mouth once daily 07/25/2022 Active fluticasone propionate (Flonase) 50 MCG/ACT nasal spray ADMINISTER 1 SPRAY IN EACH NOSTRIL EVERY 12 HOURS Active doxycycline hyclate (Vibramycin) 100 MG capsule Take 1 (one) capsule by mouth 2 times daily 08/29/2022 Active meloxicam (Mobic) 15 MG tablet TAKE 1 TABLET BY MOUTH EVERY DAY 30 tablet 5 03/14/2024 Active Hospital, Clinic, or Other Facility Administered Medication Ordered Dose Route Frequency Start Date End Date Status methylPREDNISolone acetate (DEPO-Medrol) injection 80 mgIndications:Primary osteoarthritis of right knee 80 mg IX ONCE 04/16/2024 04/16/2024 Ended lidocaine PF (Xylocaine MPF) 1 % injection 3 mLIndications:Primary osteoarthritis of right knee 3 mL IX ONCE 04/16/2024 04/16/2024 Ended Active Problems Problem Noted Date Diagnosed Date Primary osteoarthritis of right knee 10/20/2022 Social History Tobacco Use Types Packs/Day Years Used Date Smoking Tobacco: Never Smokeless Tobacco: Never Tobacco Cessation:Counseling Given: Not Answered Alcohol Use Standard Drinks/Week Comments Yes 1 (1 standard drink = 0.6 oz pur e alcohol) PHQ-2 Answer Date Recorded Patient Health Questionnaire-2 Score 0 04/15/2024 Sex and Gender Information Value Date Recorded Sex Assigned at Not on file Gender Identity Not on file Sexual Orientation Not on file Last Filed Vital Signs Vital Sign Reading Time Taken Comments Blood Pressure - - Pulse - - Temperature - - Respiratory Rate - - Oxygen Saturation - - Inhaled Oxygen Concentration - - Weight 113.4 kg (250 lb) 10/18/2022 3:01 PM CDT Height 177.2 cm (5' 9.75 ) 10/18/2022 3:01 PM CD T Body Mass Index 36.13 10/18/2022 3:01 PM CDT Plan of Treatment Upcoming Encounters Date Type Department Care Team (Late st Contact Info) Description 07/16/2024 2:20 PM CDT Office Visit [facility] [address] [phone] [place] [address] [address] Care Teams Wide Area Network Administrator Relationship Specialty Start Date End Date Rosita Merlos MD [address] [facility] [place] [address] PCP - General Family Medicine 10/18/22
--- OUTSIDE RECORDS SUMMARY | 2024-04-19 15:00 | XMS_ITS | Patient Health Summary ---
Author Organization [facility] Address [address] [place] [address] Care Team Providers Care Scrap Drop Engineer Name Role Phone Rosita Merlos MD Primary Care Provider [phone] Note from [facility],non-owned Affiliates and Associated Physician Practices is amultiple site organization consisting of ambulatory clinics and hospital sitesin [place], [place], [place] and [place]. This disclosure is being madepursuant to the Care Everywhere program and may not contain all information available regarding this patient. Last updated 17.[facility] Allergies * Latex(Other) Medications * Be aware that medications may not be up to date on this document. Alwaysverify current medications with the patient. * miSOPROStol (Cytotec) 200 MCG tablet TAKE 1 TABLET BY MOUTH TWICE DAILY WITH DICLOFENAC * hydroCHLOROthiazide (Hydrodiuril) 25 MG tablet(Started 07/25/2022) Take 1 (one) tablet by mouth once daily * fluticasone propionate (Flonase) 50 MCG/ACT nasal spray ADMINISTER 1 SPRAY IN EACH NOSTRIL EVERY 12 HOURS * doxycycline hyclate (Vibramycin) 100 MG capsule(Started 08/29/2022) Take 1 (one) capsule by mouth 2 times daily * meloxicam (Mobic) 15 MG tablet(Started 03/14/2024) TAKE 1 TABLET BY MOUTH EVERY DAY 5 refills by 03/14/2025 Active Problems Problem Noted Date Diagnosed Date [...] Mass Index 36.13 10/18/2022 3:01 PM CDT Procedures * XR KNEE RIGHT 3VW(Performed 10/18/2022) Performed for Right knee pain, unspecified chronicity Results * XR KNEE RIGHT 3VW (10/18/2022 3:08 PM CDT) Anatomical Region Laterality Modality Lower Extremity Computed Radiogr aphy Narrative 10/18/2022 3:08 PM CDT Ana Hampton, RT(R) 10/27/2022 9:14 AM See progress notes for results Esa Sullivan MD DIAGNOSTIC IMAGING O [facility] Care Teams Scrap Drop Engineer Relationship Specialty Start Date End Date Rosita Merlos MD [address] [facility] [place] [address] PCP - General Family Medicine 10/18/22
--- OUTSIDE RECORDS SUMMARY | 2024-04-19 15:00 | XMS_ITS | Clinical Summary ---
Author Organization [facility] Address [address] [place] [address] Care Team Providers Care Platinum And Palladium Kettle Tender Name Role Phone Rosita Merlos MD Primary Care Provider [phone] Source Comments [facility] and Associated Physician Practices is amultiple site organization consisting of ambulatory clinics and hospital sitesin [place], [place], [place] and [place]. This disclosure is being madepursuant to the Care Everywhere program and may not contain all information available regarding this patient. Last updated 17.[facility] Allergies Active Allergy Reactions Criticality Noted Date [...] Date Primary osteoarthritis of right knee 10/20/2022 Encounters Date Type Department Care Team Description 04/16/2024 2:20 PM PAINTER AND BODY MECHANIC APPRENTICE Office Visit [address], [address] [phone] Esa Sullivan MD Primary osteoarthritis of right knee (Primary Dx) 03/13/[address], [address] [phone] Matty Walter PA-C Refill Request 01/23/2024 2:30 PM PAINTER AND BODY MECHANIC APPRENTICE Office Visit [address] [phone] Esa Sullivan MD Primary osteoarthritis of right knee (Primary Dx) from Last 3 Months Social History Tobacco Use Types Packs/Day Years [...] Description 07/16/2024 2:20 PM CDT Office Visit [address], [address] [phone] [place] [address] [address] Health Maintenance Due Date Last Done Comments BONE DENSITY TESTING 1955 COLOGUARD (AGES 45-75) - COL ON CA SCREENING 1957 COLON MONITORING 1957 COLONOSCOPY - COLON CA SCREENING 1957 CT COLONOGRAPHY - COLON CA SCREENING 1957 Colorectal Cancer Screening 1957 FIT - COLON CA SCREENING 1957 FLEX SIG - COLON CA SCREENING 1957 LIPID TESTING 1957 HEPATITIS C SCREENING 08/15/1975 DTAP/TDAP/TD VACCINES (1 - Tdap) 1976 PNEUMOCOCCAL VACCINE 50+ (1 of 1 - PCV) 08/20/2007 ZOSTER VACCINE (1 of 2) 08/20/2007 MAMMOGRAM 12/03/2022 12/03/2020 COVID-19 VACCINE (1 - 2023-2 5 season) 2023 INFLUENZA VACCINE (#1) 2023 Respiratory Syncytial Virus (RSV) Vaccine Pt: or over 60 yrs (1 - 1-dose 75+ series) 2032 DEPRESSION SCREENING Completed 04/16/2024, 01/23/2024 HEPATITIS B VACCINE Aged Out No longe r eligible based on patient's age to complete this topic HIB VACCINE Aged Out No longer eligi ble based on patient's age to complete this topic HPV VACCINE Aged Out No longer eligi ble based on patient's age to complete this topic MENINGOCOCCAL (Group B) VACCINE Aged Out No longer eligible b ased on patient's age to complete this topic MENINGOCOCCAL VACCINE Aged Out No amena kelli eligible based on patient's age to complete this topic Care Teams Platinum And Palladium Kettle Tender Relationship Specialty Start Date End Date Rosita Merlos MD [address] [facility] [place] [address] PCP - General Family Medicine 10/18/22
== END 2024-04-19 14:52 | disposition home or self-care (01) ==
PROVIDERS: PCP Family Medicine; Visit Provider Family Medicine
DX: R22.2 Localized swelling, mass and lump, trunk (principal)
CPT/HCPCS: 76705

== ENCOUNTER 2024-05-27 14:41 | Outpatient (CLI) | payer OTHER, SELFPAY ==
--- NOTE | ~2024-05-27 | MM_ITS ---
EXAMINATION: MM screening [facility] BI w [facility] HISTORY: Screening TECHNIQUE: Craniocaudal and mediolateral oblique 3-D tomosynthesis images were obtained and synthetic 2-D images were generated. CAD analysis was submitted and interpreted. COMPARISON: Comparison to multiple prior studies sequentially, with oldest reviewed study dated 02/10. BREAST PARENCHYMAL COMPOSITION: Not Dense: The breasts are almost entirely fatty. FINDINGS: There is no evidence of suspicious mass, calcification, or architectural distortion to sugg est malignancy in either breast. There has been no suspicious interval change. IMPRESSION: 1. No mammographic evidence of malignancy. 2. Recommend routine screening mammography in one year. BI-RADS Category 1: Negative Reviewed, dictated and finalized at location B.
--- OUTSIDE RECORDS SUMMARY | 2024-05-27 17:20 | XMS_ITS | Clinical Summary ---
Author Organization [facility] Address [address] [place] [address] Phone Care Team Providers Care Dormitory Supervisor Name Role Phone Rosita Merlos MD Primary Care Provider [phone] Medications hydroCHLOROthiaz kelsie 25 mg tablet Take [...] Colonography Q 5 years 2002 PNEUMOCOCCAL VACCINE 50+ YEA RS (1 of 1 - PCV) [...] to Health Maintenance Insurance [employer] Care Teams Dormitory Supervisor Relationship Specialty Start Date End Date Rosita Merlos MD [address] [place] [address] PCP - General Family Practice 01/06/21
--- OUTSIDE RECORDS SUMMARY | 2024-05-27 17:20 | XMS_ITS | Data Portability ---
Author Organization [facility] [place] Address [address] [place] [address] Care Team Providers Care Branch Logistics Supervisor Name Role Phone ERMA LOPEZ Primary Care [...] Time 01/08/20 21 aspiration of breast completed [facility] 07/24/2021 15:26:58 03/19/19 21 Carpal tunnel surgery completed [facility] 07/24/2021 15:26:03 09/29/19 18 Carpal tunnel surgery completed [facility] 07/24/2021 15:25:54 09/30/19 17 operation on mouth completed [facility] 07/24/2021 11:09:51 07/24/19 17 operation on mouth completed [facility] 07/24/2021 11:09:33 09/05/19 15 cataract surgery completed [facility] 07/24/2021 11:10:11 03/13/19 08 Breast Biopsy completed [facility] 07/24/2021 15:26:29 03/13/19 02 Appendectomy completed [facility] 07/24/2021 15:26:38 10/25/19 01 hysterectomy completed [facility] 07/24/2021 11:12:52 06/18/18 96 procedure on foot completed [facility] 07/24/2021 11:14:08 09/14/18 95 section completed [facility] 07/24/2021 11:08:24 10/30/18 92 excision of neuroma of cutaneous nerve completed [facility] 07/24/2021 11:11:09 08/07/18 91 cryosurgery completed [facility] 07/24/2021 15:24:58 09/15/18 90 Hysteroscopy completed [facility] 07/24/2021 11:12:21 03/13/18 90 cone biopsy of cervix completed [facility] 07/24/2021 15:25:28 Imaging Results None recorded. Procedure Notes None recorded. Medical Equipment None Reported. Allergies Allergen ID Allergen Name Allergen Category Reaction Reaction Severity Criticality Documentation Date Start Date Code Code System Note Provider Name and Address Organization Details Recorded Time 75009 latex environme nt,medica tion Not available Not available Not available 02/28/2020 83400 91 RxNorm Comme nt: Locat ion: [facility] [...] Prescrib ed Elsewher e: Yes Loca tion: [facility] odify By: margoth rollins DateTime : 04/20/19 [...] Prescrib ed Elsewher e: Yes Loca tion: [facility] odify By: margoth rollins DateTime : 04/20/19 11:45:00 AM Not Available Not Available Not Available mometason e furoate (bulk) 100 % powder 07/24 completed Prescrib ed Elsewher e: Yes Loca tion: [facility] odify By: margoth rollins DateTime : 05/24/19 02:30:00 PM Not Available Not Available Not Available Vitals Date Recorded Body height Body mass index (BMI) Body weight Provider Name and Address Organization Details Last Updated DateTime 07/24/2021 176.56 cm 37.8 kg/m2 788077.02 g Lois Gamboa [facility] 07/24/2021 10:51:42 Date Recorded Systolic blood pressure Diastolic blood pressure Provider Name and Address Organization Details Last Updated DateTime 07/24/2021 130 mm[Hg] 79 mm[Hg] Justine Mendez, [facility]- [address], [place], [address], [facility] 07/24/2021 11:18:03 Social History Question Answer Notes LastModified by Organizat ion Details LastModified Time Tobacco Smoking Status Never Smoker Lois Gamboa [facility], [facility] 07/24/2021 11:07:55 What Is Your Level Of Alcohol Consumption? Occasional Information not available 07/24/2021 Are You Blind Or Do You Have Difficulty Seeing? No [email or web address] Information n ot available 07/24/2021 What Is Your Level Of Caffeine Consumption? Occasional Information not available 07/24/2021 In The 14 Days Before Symptom Onset, Have You Had Close Contact With A Laboratory-confirm ed COVID-19 While That Case Was Ill? No [email or web address] Information n ot available 07/24/2021 In The 14 Days Before Symptom Onset, Have You Had Close Contact With A Person Who Is Under Investigation For COVID-19 While That Person Was Ill? No Information not available 07/24/2021 Have You Been To An Area Known To Be High Risk For COVID-19? No [email or web address] Information not available 07/24/2021 Are You Deaf Or Do You Have Serious Difficulty Hearing? No [email or web address] Information not available 07/24/2021 What Type Of Diet Are You Following? REGULAR [email or web address] Information n ot available 07/24/2021 Have You Ever Been Counseled For Unhealthy Alcohol Use? No [email or web address] Information not available 07/24/2021 Do You Use Your Seat Belt Or Car Seat Routinely? Yes [email or web address] Information not available 07/24/2021 Do You Have Smoke And Carbon Monoxide Detectors In Your Home? Yes Information not available 07/24/2021 Do You Feel Stressed (tense, Restless, Nervous, Or Anxious, Or Unable To Sleep At Night)? [id number] [email or web address] Information not available 07/24/2021 Do You Use Any Illicit Or Recreational Drugs? No [email or web address] Information not available 07/24/2021 Do You Use Sunscreen Routinely? Yes [email or web address] Information not available 07/24/2021 Has Tobacco Cessation Counseling Been Provided? No Information not available 07/24/2021 Do You Or Have You Ever Used Any Other Forms Of Tobacco Or Nicotine? No [email or web address] Information not available 07/24/2021 Sex: Unknown Functional Status Question Answer Note LastModified by Organizat ion Details LastModified Time Do you have difficulty walking or climbing stairs? No [email or web address] Information not available 07/24/2021 Are you able to walk? YESWOREST [email or web address] Information not available 07/24/2021 Are you able to care for yourself? Yes [email or web address] Information not available 07/24/2021 Do you have difficulty dressing or bathing? No [email or web address] Information not available 07/24/2021 What is your exercise level? Occasional [email or web address] Information not available 07/24/2021 Mental Status None recorded. Family History Relationship Description Onset Age of this Age Resolved Age Notes LastModified by Organization Details LastModified Time Brother Myocardial infarction [email or web address] Not available 07/11 11:06:59 Brother Heart disease [email or web address] Not available 07/24 11:07:06 Paternal Aunt Malignant tumor of breast [email or web address] Not available 07/24 11:07:14 Notes:Brother: Congenital he art disease Paternal aunt: Cancer, breast Medical History Condition Response Allergies (Food, seasonal, environmental ) N Other N Breast Cancer N Blood Transfusion N Drug/Latex Allergies/Reactions N Dermatologic Disorders N Lung Disease N Defects or Inherited Disease N Breast Problem Y Gestational Diabetes N Hematologic disorders N Anesthesia Complications N History of STI N Deep Vein Thrombosis N Polycystic ovary syndrome N Anxiety Disorder N Autoimmune disease N Arthritis N Polyps N Infertility N Acid Reflux (GERD) N History of abnormal pap N Cancer N Varicosities N Stroke N Neurologic/Epilepsy Y Endometriosis N High Cholesterol N Fibromyalgia N Headaches N Kidney Disease N Heart Problems N [...] SNOMED-CT Code Diagnosis ICD10 Code Diagnosis Note [id number] Justine Mendez [facility] [address] [address] 07/24/2021 10:29:45 07/27/2021 16:11:27 Labial cyst [id number] N90.7 Area of concern was examined & [...] ID Guarantor Name 07/24/2021 1 [employer] - DOS PRIOR TO 03.13.2023 Lisa Hernandez [id number] Notes Date Note Type Note Provider Name and Address Organization Details Recorded Time 07/24/2021 text/html Here today for concerns of a vaginal bump noted about a week ago.Not causing any issues.Was washing this area and felt something. Neg painNeg drainageNeg shaving/waxingNeg vag d/c, itching, odorNeg SA-declined need std screenNeg Hx of Vag HSV Justine Mendez, [facility] [address], [place], [address], [facility] 07/27/2021 07:58:11 OBGyn Episode Ob Episode Information Episode Created Date Number of Fetuses Patient Bloodtype Patient rh Status Prepregnancy Weight lbs Domestic Partner Domestic Partner Phone Father Name Fleet Service Clerk Status 07/25/19 22 1 CLOSED Fetus Data First Name Last Name Admitted to NICU Weight (g) Sex Living Outcome Pediatric Complications Fetus ID Race Codes Race Delivery Type 3968.93 F Full Term [id number] Primary Andrzej Calculation Initial Andrzej Date Initial [...]
--- OUTSIDE RECORDS SUMMARY | 2024-05-27 17:20 | XMS_ITS | Clinical Summary ---
Author Organization [facility] Address [address] [place] [address] Care Team Providers Care Track Production Engineer Name Role Phone Rosita Merlos MD Primary Care Provider [phone] Source Comments [facility],non-[facility] and Associated Physician Practices is amultiple site organization consisting of ambulatory clinics and hospital sitesin [place], [place], [place] and [place]. This disclosure is being madepursuant to the Care Everywhere program and may not contain all information available regarding this patient. Last updated 17.[facility] Allergies Active Allergy Reactions Criticality Noted Date [...] EVERY DAY 30 tablet 5 03/14/2024 Active Active Problems Problem Noted Date Diagnosed Date Primary osteoarthritis of right knee 10/20/2022 Encounters Date Type Department Care Team Description 04/16/2024 2:20 PM UPHOLSTERY ESTIMATOR Office Visit [facility] [id number] [place] [address], [address] [phone] Esa Sullivan MD Primary osteoarthritis of right knee (Primary Dx) 03/13/2024 Refill [facility] [address] [place] [phone] Matty Walter PA-C Refill Request from Last 3 Months Social History Tobacco [...] Description 07/16/2024 2:20 PM CDT Office Visit [facility] [address] [place] [phone] [place] [address] [address] Health Maintenance Due Date Last Done Comments [...] complete this topic MENINGOCOCCAL (Group B) VACCINE SHARED DECISION-MAKING Aged Out No longer eligible based on patient's age to complete this topic MENINGOCOCCAL GROUPS A/C/Y/W VACCINE Aged Out No longer eligible b ased on patient's age to complete this topic Care Teams Track Production Engineer Relationship Specialty Start Date End Date Rosita Merlos MD [address] [facility] [place] [address] PCP - General Family Medicine 10/18/22
--- OUTSIDE RECORDS SUMMARY | 2024-05-27 17:21 | XMS_ITS | Patient Health Summary ---
Author Organization [facility] Address [address] [facility] [place] [address] Care Team Providers Care Book Mender Name Role Phone Rosita Merlos MD Primary Care Provider [phone] Note from [facility],non-owned Affiliates and Associated Physician Practices is amultiple site organization consisting of ambulatory clinics and hospital sitesin [place], [place] and [place]. This disclosure is being madepursuant to the Care Everywhere program and may not contain all information available regarding this patient. Last updated 17.[facility] Allergies * Latex(Other) Medications * Be aware [...] results Esa Sullivan MD DIAGNOSTIC IMAGING O [facility] Care Teams Book Mender Relationship Specialty Start Date End Date Rosita Merlos MD [address] [facility] [place] [address] PCP - General Family Medicine 10/18/22
--- OUTSIDE RECORDS SUMMARY | 2024-05-27 17:21 | XMS_ITS | Referral Summary ---
Author Organization [facility] Address [address] [facility] [place] [address] Care Team Providers Care Home Teaching Grades 7 And 8 Teacher Name Role Phone Rosita Merlos MD Primary Care Provider Source Comments [facility],non-[facility] and Associated Physician Practices is amultiple site organization consisting of ambulatory clinics and hospital sitesin [place], [place], [place] and [place]. This disclosure is being madepursuant to the Care Everywhere program and may not contain all information available regarding this patient. Last updated 17.[facility] Encounters Date Type Department Care Team Description 04/16/2024 2:20 PM OVENS SUPERVISOR Office Visit [address] [phone] Esa Sullivan MD Primary osteoarthritis of right knee (Primary Dx) 03/13/[address] [phone] Matty Walter PA-C Refill Request from Last 3 Months Allergies Active Allergy Reactions Criticality Noted Date Comments Latex Other 10/18/2022 Medications * Be aware that medications may not be up to date on this document. Always verify current medications with the patient. Medication Sig [...] Description 07/16/2024 2:20 PM CDT Office Visit [facility] [address] [phone] [place] [address] [address] Care Teams Home Teaching Grades 7 And 8 Teacher Relationship Specialty Start Date End Date Rosita Merlos MD [address] [facility] [place] [address] PCP - General Family Medicine 10/18/22
== END 2024-05-27 14:42 | disposition home or self-care (01) ==
LOC: ANHIMG 14:42
PROVIDERS: PCP Family Medicine; Visit Provider Family Medicine
DX: Z12.31 Encounter for screening mammogram for malignant neoplasm of breast (principal)
CPT/HCPCS: 77063; 77067

== ENCOUNTER 2024-09-23 17:55 | Emergency (ER) | payer OTHER, SELFPAY ==
--- NOTE | 2024-09-23 17:59 | ED.URI ---
HPI - URI/Sore Throat General Chief Complaint: Upper Respiratory Infection Stated Complaint: Sinus Infection Symptoms Time Seen by Provider: 09/23/24 18:16 Source: patient, RN notes reviewed and old records reviewed Mode of arrival: ambulatory Limitations: no limitations History of Present Illness HPI Narrative: 69-year-old female presents to the [facility] with concerns for a sinus infection. Patient reports that a September 13 started with a runny nose, has progressed to a congestion, facial pain, postnasal drainage, ear discomfort and pressure. Reports that she does take Claritin and use Flonase every day. Denies any other treatment prior to arrival Denies fevers, chest pain. Reports intermittent cough Onset (ago): day(s) (10) Treatments prior to arrival: other (Claritin, Flonase) Related Data Home Medications ?Medication ?Instructions ?Recorded ?Confirmed ?Last Taken ?Type calcium 200 mg (as 1 tablet PO DAILY 12/23/19 09/23/24 Unknown History citrate)-vitamin D3 6.25 mcg (250 unit) tablet multivitamin 1 tablet PO DAILY 12/23/19 09/23/24 Unknown History meloxicam 15 mg tablet 15 mg PO DAILY 09/19/23 09/23/24 Unknown History Allergies Allergy/AdvReac Type Severity Reaction Status Date / Time Inhaled Anesthetics (Halogen Allergy Mild Unknown Verified 09/23/24 18:11 Based) lidocaine (From Anastia) Allergy Mild Unknown Verified 09/23/24 18:11 adhesive tape Allergy Unknown Rash Verified 09/23/24 18:11 latex Allergy Unknown unknown Verified 09/23/24 18:11 Review of Systems Review of Systems: All systems reviewed & are unremarkable except as noted in HPI and below Constitutional: Constitutional: Reports no additional constitutional complaints ENT: Reports as per HPI Cardiovascular: Cardiovascular: Reports no additional cardiovascular complaints, Denies chest pain and Denies dyspnea Respiratory: Respiratory: Reports as per HPI, Denies chest congestion, Reports cough and Denies dyspnea Musculoskeletal: Musculoskeletal: Reports no additional musculoskeletal complaints Integumentary/Breasts: Skin/Breast: Reports system reviewed and no additional complaints, except as docu PMFSH Past Medical History Medical History Subclinical hypothyroidism Allergic rhinitis Essential (primary) hypertension Other hyperlipidemia Surgical History Surgical History History of carpal tunnel surgery of left wrist H/O: hysterectomy Carpal tunnel syndrome of right wrist History of appendectomy H/O section Family History Family History Father Patient's father is Family history of emphysema Sibling Patient's brother is Mother Family history of arthritis Social History Social History Smoking status: Never smoker Second hand tobacco smoke exposure: No Alcohol intake: current Alcohol use details: rare Substance use: never Substance use type: does not use Lack of Transportation: No Lack of Food: Never True Current Housing: I Have Housing Concerned About Future Housing: No Difficulty Paying Gas/Electric Bills: No Difficulty Paying for Meds: No Currently Unemployed: No Education: High School Diploma/GED Living arrangements: with family Occupation/Education: retired Gender identity (if verbalized by the patient): Female Sexual Orientation (if Verbalized by the Patient): Straight or Heterosexual Spiritual care concerns: No Agree to blood products: Yes Comments At the time of my signature, I reviewed and agree with the nursing past medical, surgical, social, and family history. There is no relevant family history pertinent to the patient complaint. Exam Const: General: cooperative, healthy appearing, comfortable, no acute distress, well developed, alert and well nourished Nutritional Appearance: well nourished Orientation/consciousness: patient oriented x3 Limitations: no limitations HENMT: Head: normal to inspection Ears: hearing grossly normal bilaterally, external ears normal, TM's normal bilaterally, EAC's normal, mastoids normal and no periauricular adenopathy Face/Nose/Sinus: Normal external nose present and Normal nasal mucous membranes and turbinates present Face and sinus: normal facial exam, face symmetric, no ecchymosis, no erythema and sinus tenderness Mouth: Yes Normal oral and palatal mucosa present, Yes lip normal, Yes tongue normal and Yes moist mucous membranes Throat: posterior oropharynx normal, uvula midline, postnasal drainage and no uvular edema Eyes: General: appearance normal, both eyes and all related structures Alignment and Position: alignment normal Neck: Neck: normal visual inspection, full ROM, no lymphadenopathy and no meningeal signs Chest: Chest palpation & inspection: normal inspection of the chest Resp: Effort & Inspection: normal respiratory effort and able to speak in complete sentences Auscultation: clear to auscultation bilaterally, no crackles, no rales, no rhonchi and no wheezes Cardio: Rate: regular rate Skin: General skin exam: normal color and no rashes or lesions noted Neuro: General: patient oriented x3, gait normal, moves all extremities and no meningeal signs Cognition (Neuro): normal cognition Speech: normal speech Gait exam (Neuro): Normal gait present Extrem: General: normal to inspection, full ROM, capillary refill normal and normal gait Psych: Appearance: grossly normal and well kempt Mental Status: mental status grossly normal Speech and movement: Normal speech and movement present and Clear speech present Affect: normal affect Attitude: cooperative Course Course Level of Care: Express Care Visit Vital Signs Vital signs: Vital Signs Temperature 98.7 F 09/23/24 18:16 Pulse Rate 74 09/23/24 18:16 Respiratory Rate 16 09/23/24 18:16 Blood Pressure 139/87 09/23/24 18:16 Pulse Oximetry 99 09/23/24 18:16 Oxygen Delivery Room Air 09/23/24 18:16 Temperature 98.7 F 09/23/24 18:16 Pulse Rate 74 09/23/24 18:16 Respiratory Rate 16 09/23/24 18:16 Blood Pressure 139/87 09/23/24 18:16 Pulse Oximetry 99 09/23/24 18:16 Oxygen Delivery Room Air 09/23/24 18:16 Reviewed MDM - URI/Sore Throat MDM Narrative Medical decision making narrative: Patient sitting comfortably in exam room. Patient is nontoxic, vitals are stable. Patient presents with 10 day history of worsening sinus pain, pressure. Due to length of symptoms will prescribe an antibiotic. Only abnormality found was postnasal drainage. Patient appropriate for outpatient treatment with close follow-up Discharge instructions reviewed with patient, as well as provided in writing per nursing staff. The instructions also include specific and strict return/GO TO THE ER as well as f/u information. All questions have been answered, and the patient deny any further questions with discharge and discharge plan. Some parts of this dictation were generated by voice recognition software and may contain typographical and/or grammatical inaccuracies. Differential Diagnosis Differential diagnosis: Likely upper respiratory infection, otitis media, sinusitis, viral infection, influenza and pharyngitis Critical Care Time Critical Care Time Critical Care Time: No Discharge Plan Discharge Clinical Impression: Post-nasal drainage Sinusitis Qualifiers: Sinusitis location: pansinusitis Chronicity: acute Recurrence: not specified as recurrent Qualified Code(s): J01.40 - Acute pansinusitis, unspecified Patient Disposition: Home Condition: Stable Instructions: Antibiotic Form, Sinusitis (ED), Postnasal Drip (DC) Additional Instructions: It is very important to treat your symptoms. Drink plenty of water, Gatorade, Pedialyte, ice pops or Jell-O. -Alternate Tylenol and Motrin per package directions for fever or pain. You can alternate every 4 hours -Antihistamine medication such as Zyrtec/Claritin/Kiah during the day can help improve symptoms. -doing daily nasal irrigations can help relieve pressure your sinuses. Things like a Neti pot -Use Flonase twice a day for 5 days then daily to help reduce the inflammation and dry up your sinuses. -You can also use Coricidin HBP. Be sure to drink plenty of water with this medication at least 8 ounces with every dose and it is important to drink 8 to 10 glasses of water per day. Water is a natural decongestant -Eat and drink things that are easy to swallow, like tea or soup, or popsicles. -Oral rinses such as: Salt water gargles and/or may use topical anesthetic (eg. Chloraseptic spray) or lozenges to relieve dryness or throat pain). -Frequent hand washing or hand digester operator helper is one of the best ways to prevent spread of infection. -Using a vaporizer or humidifier at night will also help thin secretions and help with coughing up phlegm. -Follow up with primary care provider in 7-10 days if condition is not improving - For new or worsening symptoms go directly to the nearest ER Patient Language: Serbian Prescriptions: New doxycycline monohydrate 100 mg tablet 100 mg PO BID Qty: 14 0RF No Action multivitamin Tablet 1 tablet PO DAILY calcium citrate-vitamin D3 200 mg calcium -250 unit tablet 1 tablet PO DAILY meloxicam 15 mg tablet 15 mg PO DAILY potassium gluconate 500 mg (83 mg) tablet 500 mg PO DAILY Qty: 30 0RF levothyroxine [Levoxyl] 50 mcg tablet 50 mcg PO DAILY Qty: 90 0RF fluticasone propionate 50 mcg/actuation spray,suspension 1 spray NASAL Q12H Qty: 3 5RF Rx Instructions: administer into each nostril (DME) influenza vaccine See Rx Instructions .Route .MEDSUPPLY Qty: 1 0RF Rx Instructions: As directed for injection (DME) COVID vaccine See Rx Instructions .Route .MEDSUPPLY Qty: 1 0RF Rx Instructions: As directed for injection hydrochlorothiazide 25 mg tablet 25 mg PO DAILY Qty: 90 2RF Follow-up/Referrals: Rosita Merlso MD [Physician] - 2 Weeks (express care follow up ) PHYSICIAN,PHARMACOVIGILANCE SPECIALIST [Primary Care Provider] - Time of Disposition: 18:26
[2024-09-23 18:16] VITALS: BP 139/87; PULSE 74; RESP 16; TEMP 37.1; O2SAT 99
== END 2024-09-23 18:32 | disposition home or self-care (01) ==
PROVIDERS: Emergency Provider Nurse Practitioner
DX: R09.82 Postnasal drip (principal); J01.40 Acute pansinusitis, unspecified; I10 Essential (primary) hypertension; E03.8 Other specified hypothyroidism; E78.49 Other hyperlipidemia
CPT/HCPCS: 99213; G0463

== ENCOUNTER 2025-01-31 17:46 | Emergency (ER) | payer OTHER, SELFPAY ==
--- NOTE | 2025-01-31 17:47 | ED_ITS ---
HPI - Female Genitourinary General Chief complaint: Urogenital-Female Stated complaint: FREQUENT URINATION Time Seen by Provider: 01/31/25 17:47 Source: patient Mode of arrival: ambulatory Limitations: no limitations History of Present Illness HPI Narrative: Lisa is a 69-year-old female patient presenting to the clinic today with complaints of frequent urination x1 month. She reports she thinks the symptoms may be due to taking meloxicam. She also takes hydrochlorothiazide. She denies any burning with urination, back pain, or abdominal pain. No blood in her urine. Denies any vaginal discharge or concerns for STIs. Related Data Home Medications ?Medication ?Instructions ?Recorded ?Confirmed ?Last Taken ?Type calcium 200 mg (as 1 tablet PO DAILY 12/23/19 0 10/09/24 Unknown History citrate)-vitamin D3 6.25 mcg (250 unit) tablet multivitamin 1 tablet PO DAILY 12/23/19 0 10/09/24 Unknown History meloxicam 15 mg tablet 15 mg PO DAILY 09/19/2309/12 Unknown History celecoxib 200 mg capsule mg 01/31/25 Unknown History Allergies Allergy/AdvReac Type Severity Reaction Status Date / Time Inhaled Anesthetics (Halogen Allergy Mild Unknown Verified 01/31/25 17:50 Based) lidocaine (From Anastia) Allergy Mild Unknown Verified 01/31/25 17:50 adhesive tape Allergy Unknown Rash Verified 01/31/25 17:50 latex Allergy Unknown unknown Verified 01/31/25 17:50 Review of Systems Review of Systems: Pertinent positives per HPI. Patient denies any fever, chills, rash, headache, visual changes, dizziness, cough, shortness of breath, chest pain, palpitations, nausea, vomiting, diarrhea, constipation, abdominal pain, or any urinary issues. [facility] Past Medical History Medical History Subclinical hypothyroidism Allergic rhinitis Essential (primary) hypertension Other hyperlipidemia Surgical History Surgical History History of carpal tunnel surgery of left wrist H/O: hysterectomy Carpal tunnel syndrome of right wrist History of appendectomy H/O section Family History Family History Father Patient's father is Family history of emphysema Sibling Patient's brother is Mother Family history of arthritis Social History Social History Smoking status: Never smoker Second hand tobacco smoke exposure: No Alcohol intake: current Alcohol use details: rare Substance use: never Substance use type: does not use Lack of Transportation: No Lack of Food: Never True Current Housing: I Have Housing Concerned About Future Housing: No Difficulty Paying Gas/Electric Bills: No Difficulty Paying for Meds: No Currently Unemployed: No Education: High School Diploma/GED Living arrangements: with family Occupation/Education: retired Gender identity (if verbalized by the patient): Female Sexual Orientation (if Verbalized by the Patient): Straight or Heterosexual Spiritual care concerns: No Agree to blood products: Yes Comments At the time of my signature, I reviewed and agree with the nursing past medical, surgical, social, and family history. There is no relevant family history pertinent to the patient complaint. Exam Narrative: General: Well-developed, obese, in no apparent distress. Head: Normocephalic, atraumatic. Cardio: Regular rate and rhythm, s1 and s2 normal, no murmur appreciated. Resp: Clear to auscultation bilaterally, no rhonchi, rales, wheezing or rubs. Abdomen: Soft, pliable, bowel sounds present in all quadrants, non-tender to palpation, no organomegly, no CVAT tenderness. Course Course Emergency Course: Portions of this record may have been created with voice recognition software. Level of Care: Express Care Visit Vital Signs Vital signs: Vital Signs Temperature 36.6 C 01/31/25 17:56 Pulse Rate 79 01/31/25 17:56 Respiratory Rate 16 01/31/25 17:56 Blood Pressure 154/91 H 01/31/25 17:56 Pulse Oximetry 100 01/31/25 17:56 Oxygen Delivery Room Air 01/31/25 17:56 Temperature 36.6 C 01/31/25 17:56 Pulse Rate 79 01/31/25 17:56 Respiratory Rate 16 01/31/25 17:56 Blood Pressure 154/91 H 01/31/25 17:56 Pulse Oximetry 100 01/31/25 17:56 Oxygen Delivery Room Air 01/31/25 17:56 Vital signs reviewed MDM - Female Genitourinary MDM Narrative Medical decision making narrative: At the time of visit patient is resting comfortably on the exam table. Patient appears to be nontoxic. Complaints of frequent urination x1 month. She reports she thinks the symptoms may be due to taking meloxicam. She also takes hydrochlorothiazide. She denies any burning with urination, back pain, or abdominal pain. No blood in her urine. Denies any vaginal discharge or concerns for STIs. Urine dip ordered. Labs: Urinalysis dip was performed shows trace of leukocytes. Possible contamination. We will send urine for culture. Plan: I suspect patient has urinary frequency. We will send urine for culture if this comes back positive for bacteria we will call her place her on antibiotics at that time. Supportive measures were discussed with the patient and they voiced understanding discharge instructions and agrees to treatment plan. Return precautions reviewed Differential Diagnosis Differential diagnosis: Likely urinary tract infection and cystitis Discharge Plan Discharge Clinical Impression: Urinary frequency Patient Disposition: Home Condition: Stable Instructions: Antibiotic Form, Urinary Urgency and Frequency (DC) Additional Instructions: Urinalysis shows trace of leukocytes. We will send urine for culture. Stop fluid intake at 6:00 at night to see a if this helps alleviate your symptoms Take your hydrochlorothiazide in the morning Follow-up with your primary care doctor in 3-5 days if symptoms persist Patient Language: Ukrainian Prescriptions: No Action celecoxib 200 mg capsule multivitamin Tablet 1 tablet PO DAILY calcium citrate-vitamin D3 200 mg calcium -250 unit tablet 1 tablet PO DAILY meloxicam 15 mg tablet 15 mg PO DAILY (DME) rsv vaccine See Rx Instructions .Route .MEDSUPPLY Qty: 1 0RF Rx Instructions: As directed for injection (DME) influenza vaccine See Rx Instructions .Route .MEDSUPPLY Qty: 1 0RF Rx Instructions: As directed for injection (DME) COVID vaccine See Rx Instructions .Route .MEDSUPPLY Qty: 1 0RF Rx Instructions: As directed for injection levothyroxine [Levoxyl] 50 mcg tablet 50 mcg PO DAILY Qty: 90 3RF hydrochlorothiazide 25 mg tablet See Rx Instructions .ROUTE .COMPLEX Qty: 90 3RF Dose Instruction: TAKE 1 TABLET BY MOUTH DAILY Rx Instructions: TAKE 1 TABLET BY MOUTH DAILY Follow-up/Referrals: Gaurang,MD Rosita [Primary Care Provider, [facility][1]] Time of Disposition: 18:11 Quality NIHSS Nursing Documentation ED NIHSS nursing documentation: reviewed/agree
[2025-01-31 17:56] VITALS: BP 154/91; PULSE 79; RESP 16; TEMP 36.6; O2SAT 100
[2025-02-03 11:48] LABS: EDUAAPPEAR Clear; EDUABILI Negative (Negative); EDUABLOOD Negative (Negative); EDUACOLOR1 Yellow; EDUAGLUCOSE Negative (Negative); EDUAKETONE Negative (Negative); EDUALEUKO Trace (Negative); EDUANITRATE Negative (Negative); EDUAPH 6.5; EDUAPROTEIN Negative (Negative); EDUASPGRAVITY 1.020; EDUAUROBILI 0.2
== END 2025-01-31 18:11 | disposition home or self-care (01) ==
PROVIDERS: Emergency Provider Nurse Practitioner Family; PCP Family Medicine
DX: R35.0 Frequency of micturition (principal); I10 Essential (primary) hypertension; E78.49 Other hyperlipidemia; E03.8 Other specified hypothyroidism
CPT/HCPCS: 81003; 87086; 99213; G0463